=== PATIENT | female | born 1965 | race Caucasian/White ===

== ENCOUNTER 2025-03-06 10:19 | Outpatient (OUT) | payer OTHER, SELFPAY ==
--- OUTSIDE RECORDS SUMMARY | 2025-03-03 06:57 | XMS_ITS | Continuity of Care Document ---
Author Organization [facility] Address [address] [place] [address] Phone Care Team Providers Care Crane Rigger Name Role Phone Mario Roper MD Primary Care Provider [phone] Mario Roper MD Attending Provider [phone] Care Teams Patient Care Team Team Status: Active Member Role/Relationship Status Dates Mario Roper MD Primary Care Provider Active Patient Care Team Team Status: Inactive Member Role/Relationship Status Dates Mario Roper MD Primary Care Provider Active S tart: March 03, 2025 End: March 03, 2025[facility] GERSON Roperttending ProviderActiveStart: March 03, 2025 End: March 03, 2025 Chief Complaint and Reason for Visit Chief Complaint Admit Date RIGHT KNEE PAIN March 03, 2025 11:28am Reason for Visit Admit Date Annual physical exam March 03, 2025 11:28am Chronic pain of right knee February 11:28am Allergies, Adverse Reactions, Alerts Allergen Type Severity Reaction Last Updated Verified Status No Known Allergies Allergy Unknown March 03, 2025 11:37amYesActive Social History Smoking Status Status Start Date End Date Date of Observa tion Smokes tobacco daily (finding) March 03, 2025 11:38am Observation Status Observation Response Date of Response Legal Sex Female (finding) Sex Assigned At BirthFemaleJanuary 18th, 1966 Family History Relationship Condition Age at Onset Recorded Date/T heidy father Malignant neoplasm Unknown motherMalignant neoplasmUnknownbrotherCoronary artery diseaseUnknown Problems Active Problems Problem Diagnosis/Recorded Date Onset Date Stat us Acquired hallux rigidus March 02, 2025 2:40pm Unk nown Active Chronic pain of right knee March 03, 2025 11:48am Unknown Active Hallux valgus of left foot March 02, 2025 2:40pm Unknown Active Annual physical exam March 03, 2025 11:44am Unkno wn Active Acquired hammer toe March 02, 2025 2:40pm Unknown Active Medications Medication Status Dose Units Route Directions Qty Days Refills S tart Date Stop Date End Date Reason(s) Instructions Adherence Acetaminophen (Tylenol Extra Strength) 500 mg Tablet Active 500 MG PO Four times daily as needed for tooth pain November 02, 2019 11:00pmComplies with drug therapyNaproxen Sodium (Aleve) 220 mg ImenniMrmpsnmzspoh190VFTMCpsnc daily as needed for PainJuly 2019 11:00pm March 02, 2025 2:49pmLoratadine-Pseudoephedrine (Claritin-D 12 Hour) 5-120 mg Tablet Extended Release 12 DwTwewmrcdupkk7PZORKPpqleXbys 2019 11:00pm March 02, 2025 2:49pmEsomeprazole Magnesium (Nexium) 20 mg Capsule,Delayed Release(Dr/Ec)Xtwivufmzycg99XZXFX91LIlgp 2019 11:00pmNov2024 2:48pmTramadol 50 mg VnsrhzZewxtawskawr71IJYWC6B as needed for Cnwp0531Ntfs 2019 11:00pmNov2024 2:49pmPostoperative pain Other acute postprocedural painMultivitamin (Daily Multi-Vitamin) tabletActive1 TABPODailyMarch 02, 2025 12:00amComplies with drug therapyOmega-3 Fatty Acids 1,000 mg ozjocwjHntgdu1743XCTXOxvyeEpjcteri 17th, 2025 12:00amComplies with drug therapyNaproxen 250 mg ebhaaeCoylxu431YDBCXzttw daily as needed March 02, 2025 12:00amComplies with drug therapy Medical Equipment Device Date Implanted Device Details Stress urinary incontinence surgical mesh, female November 10, 2019 NIC: [id number] Issuing Agency: [employer] Device Id: [id number] Expiration Date: 2020-06-13 Lot Number: [id number] Vital Signs Vital Reading Result Reference Range Collection Date/Time Height 62 [in_i] March 03, 2025 11:36amBody Hiyhyoqgfuc95.1 [degF]97.6-99.0March 03, 2025 11:36amHeart Rate58 /fvb93-774ZloyafgrMarch 03, 2025 11:36amRespiratory rate22 /lpa33-13RywryzlnMarch 03, 2025 11:36amOxygen saturation by Pulse % 95-100March 03, 2025 11:36amBP Txcamney675 mm[Hg]100-140March 03, 2025 11:36amBP Bynmwmidu61 mm[Hg]60-100March 03, 2025 11:36am Advance Directives Advance Directive Response Recorded Date/ Time Advance Directives No March 24, 2017 9:53am Insurance Providers Guarantor Lisa Goode Address [address] [place] [address]Ahxscuw Info.Home Phone: Payer Group Member ID Coverage Type Subscriber Relationship to Subscriber Effective Date Expiration Date Industrial Self Ins Misc [address] [facility] [address] Work Phone: FX Aligned [id number] J Spradlin Id: [id number] [address] [place] [address] Home Phone: Email: [email or web address] [facility] Ind Id: [id number] J Spradlin Id: [id number] [place] [address] Home Phone: Email: [email or web address] Id: [id number] J [facility] Id: [id number] [address] [place] [address] Home Phone: Email: [email or web address] Encounter Location(s) Arrival/Admit Date Discharge/Departure Date Discharge/Departure Disposition Provider(s) Departed Physician/ Provider Office Visit -[facility] Family Medicine Lazaro March 03, 2025 11:28am March 03, 2025 11:56am Discharged to home care or self care (routine discharge) Mario Roper MD Recent Diagnosis Onset Date Admit Date Annual physical exam Unknown March 032024 11:28am Chronic pain of right knee Unknown Novem 2024 11:28am Assessments Diagnosis Onset Date Resolution Status Admit Date Annual physical exam acuteMarch 03, 2025 11:28amChronic pain of right kneeacuteMarch 03, 2025 11:28am Plan of Treatment Future Tests Future scheduled test information is unavailable Pending Tests Test Name Ordered Date Scheduled Date Comprehensive Metabolic Panel March 03 11:45am XR knee RT 4V*March 03, 2025 11:47amMM screening mammo BI w/CADMarch 03, 2025 11:45am Future Visits Future appointment information is unavailable Future Procedures Procedure Name Ordered Date Scheduled Date A1C with Estimated Average Glu March 03 11:45am Complete Blood Count Auto DiffNovember 2024 11:45amLipid PanelNov2024 11:45amThyroid Stimulating HormoneNov2024 11:45am Future Medications Future medication information is unavailable Patient Instructions Patient instructions are unavailable
--- OUTSIDE RECORDS SUMMARY | 2025-03-06 10:29 | XMS_ITS | Clinical Summary ---
Author Organization [facility] Address [address] [place] [address] Care Team Providers Care Pigment Pusher Name Role Phone Unallocated, [facility] Provider Primary Care Provi samreen Allergies No known active allergies Medications MedicationSigDispense QuantityRefillsLast FilledStart DateEnd DateStatus acetaminophen (Tylenol) 325 MG tablet Take 325 mg by mouth every 8 (eight) hours if needed for mild painActive naproxen (Naprosyn) 250 MG tablet Take 250 mg by mouth 2 (two) times a day as needed for mild painActive Multiple Vitamin (multivitamin) tablet Take 1 tablet by mouth DailyActive omega-3 acid ethyl esters (Lovaza) 1 g capsule Take 1 g by mouth DailyActive Active Problems ProblemNoted DateDiagnosed DateAcquired hallux jaovqsz0410/11/2023cquired hammer toe10/11/2023Hallux valgus of left foot10/11/2023 Family History Medical HistoryRelationNameCommentsLung cancerFatherStrokeMaternal Grandfather CancerMaternal GrandmotherCancerMotherCancerPaternal GrandfatherRelationName StatusCommentsFatherMaternal GrandfatherMaternal GrandmotherMotherPaternal Grandfather Social History Tobacco UseTypesPacks/DayYears UsedDateSmoking Tobacco: Every DayCigarettes Smokeless Tobacco: NeverAlcohol UseStandard Drinks/WeekCommentsYes1 (1 standard drink = 0.6 oz pure alcohol)CommentsUnknownSex and Gender Information ValueDate RecordedSex Assigned at BirthNot on fileLegal OpyRacypj79/15/2023 7:07 PM EDTGender IdentityNot on fileSexual OrientationNot on file Last Filed Vital Signs Vital SignReadingTime TakenCommentsBlood Mvqzukvr578/8810/11/2023 9:59 AM EDT Dzpkj2064/27/2024 9:59 AM YXAGarkbyxcmga11.8 ??C (98.3 ??F)10/11/2023 9:59 AM EDTRespiratory Rate--Oxygen Saturation--Inhaled Oxygen Concentration--Lnxdxm80.4 kg (197 lb)10/10/2021 12:00 PM TTDPzsetn517.4 cm (5' 1.2 )10/10/2021 12:00 PM EDTBody Mass Index36.98010/10/2021 12:00 PM EDT Plan of Treatment Health MaintenanceDue DateLast DoneCommentsCT Zqbjkeggukth92/18/1964Colonoscopy 1965Colorectal Cancer Tswtxylxq69/18/1964FIT-DNA1963FIT1965 FOBT1965 4958Onuizntrlajev61/18/1964Pneumococcal Vaccine: Pediatrics (0 to 5 Years) and At-Risk Patients (6 to 64 Years) (1 of 2 - PCV)1982Pap Smear 05/03/19848176Agvjhqopj77, 04/28/2021, 04/27/2020, Additional history existsCOVID-19 Vaccine ( - season)/Influenza Vaccine (#1)/Cervical Cancer Fvmzonvtf74/27/2027HPV/Cotest 7010/10/2021, 10/05/2020, 09/30/2019, Additional history exists Procedures Procedure NamePriorityDate/TimeAssociated DiagnosisCommentsBI MAMMOGRAM SCREENING GPGZBILNHSkvinxd23/16/2023 Encounter for screening for malignant neoplasm of cervix Encounter for screening mammogram for malignant neoplasm of breast Immunization not carried out because of patient refusal Encounter for gynecological examination (general) (routine) without abnormal findings THINPREP TIS PAP REFLEX HPV MRNA E6/E7 (53946)Jmicypu6710/10/2021 from Last 3 Months or Most Recently Relevant to Health Maintenance Results * Bilateral screening mammogram (05/01/2022)Anatomical RegionLateralityModality BreastBilateralMammographySpecimen (Source)Anatomical Location / Laterality Collection Method / VolumeCollection TimeReceived Time Impressions 05/01/2022 12:00 AM EST No mammographic evidence of malignancy. Routine follow-up recommended in one year. RESULT CODE: 1 ?? Negative DENSITY CODE: 1 (<25% glandular) FOLLOW UP: 1YR THE FALSE-NEGATIVE RATE OF MAMMOGRAPHY IS APPROXIMATELY 10%. IMAGING OF A PALPABLE ABNORMALITY MUST BE BASED ON CLINICAL GROUNDS. PATIENT WAS ENTERED INTO A REMINDER SYSTEM WITH A TARGET DUE DATE FOR THE NEXT MAMMOGRAM. Impression dictated by: Abhay Vega M.D.05/01/2022 10:31 AM Dictation Location: [facility] Transcribed By: ? PWS ?05/01/22 1031 Dictated By: ?Abhay Vega DO ?05/01/22 1030 Signed By: <Electronically signed by Abhay Vega, DO in OV> ? 05/01/22 1031 Narrative 05/01/2022 12:00 AM EST PERFORMED AT [facility] LOCATION:[place] [address] ?[facility] ?[facility] [place] ?[address] ? [place] [address] ? Mammography Report ? Signed Patient: Barbi Goodezabeth Farhan ?MR#: [id number] : 1965 ?Acct:[id number] Age/Sex: 56 / F ?ADM Date: 05/01/22 Loc: [place] ?Room: ?Type: REG CLI Attending Dr: Josemanuel Acosta DO Copies to: DO Josemanuel Hirsch DO Ordering Provider: Josemanuel Acosta DO Date of Service: 05/01/22 MM/MM screening mammo BI w/CAD: screening;Encounter for screening mammogram for malignant ne Bilateral Screening Full Field digital mammogram with 3-D imaging. Full field digital CC and MLO imaging performed. ??CAD utilized. COMPARISON: 04/28/2021 HISTORY:Screening FINDINGS: The breast is almost entirely fatty. ??No developing architectural distortion, developing focal breast asymmetry or developing malignant calcifications identified. MM/MM screening mammo BI w/CAD Procedure Note CONVERSION, GENERIC - 10/20/2022 PERFORMED AT [facility] LOCATION:[address] [place] [address] [place] [address] Mammography Report Signed Patient: Lisa Goode JMR#: [id number] : 1965Acct:[id number] Age/Sex: 56 / FADM Date: 05/01/22 Loc: [place] Room:Type: [facility] Attending Dr: Josemanuel Acosta DO Copies to: DO Josemanuel Hirsch DO Ordering Provider: Josemanuel Acosta DO Date of Service: 05/01/22 MM/MM screening mammo BI w/CAD:screening;Encounter for screening mammogram for malignant ne Bilateral Screening Full Field digital mammogram with 3-D imaging. Full field digital CC and MLO imaging performed. CAD utilized. COMPARISON: 04/28/2021 HISTORY:Screening FINDINGS: The breast is almost entirely fatty. No developingarchitectural distortion, developing focal breast asymmetry or developing malignant calcificationsidentified. MM/MM screening mammo BI w/CAD IMPRESSION: No mammographic evidence of malignancy. Routine follow-up recommended inone year. RESULT CODE: 1 Negative DENSITY CODE: 1 (<25% glandular) FOLLOW UP: 1YR THE FALSE-NEGATIVE RATE OF MAMMOGRAPHY IS APPROXIMATELY 10%. IMAGING OF A PALPABLE ABNORMALITY MUST BE BASED ON CLINICAL GROUNDS. PATIENT WAS ENTERED INTO A REMINDER SYSTEM WITH A TARGET DUE DATE FOR THENEXT MAMMOGRAM. Impression dictated by: Abhay Vega M.D.05/01/2022 10:31 AM Dictation Location: [facility] Transcribed By: ESSIE 05/01/22 1031 Dictated By: Abhay Vega DO 05/01/22 1030 Signed By: <Electronically signed by Abhay Vega DO in OV> 05/01/22 1031 Authorizing ProviderResult TypeResult StatusJosemanuel Acosta DOIMG BI PROCEDURES Final Result * THINPREP TIS PAP REFLEX HPV MRNA E6/E7 (02033) (10/10/2021)ComponentValueRef RangeTest MethodAnalysis TimePerformed AtPathologist SignatureCLINICAL INFORMATION:None givenNOMS LEGACY EXTERNAL LABLMP:2,017[facility] LEGACY EXTERNAL LABPREV. PAP:NEGATIVENOMS LEGACY EXTERNAL LABPREV. BX:HC CIN3 1992[facility]TER[facility] LABSOURCE:EndocervixNOMS LEGACY EXTERNAL LABSTATEMENT OF ADEQUACY:SEE COMMENTNOMS LEGACY EXTERNAL LABComment: Satisfactory for evaluation. Endocervical/transformation zone component present. INTERPRETATION/RESULT:Negative for intraepithelial lesion or malignancy.[facility] EXTER[facility] LABCOMMENT:This Pap test has been evaluated with computer assisted technology.[facility] LABCYTOTECHNOLOGIST:SEE COMMENTNOMS LEGACY EXTERNAL LABComment: GOIVANNA CARDONA(ASCP) CT screening location: [place] [address]. COMMENTSEE COMMENTNOMS LEGACY EXTERNAL LABComment: EXPLANATORY NOTE: The Pap is a screening test for cervical cancer. It is not a diagnostic test and is subject to false negative and false positive results. It is most reliable when a satisfactory sample, regularly obtained, is submitted with relevant clinical findings and history, and when the Pap result is evaluated along with historic and current clinical information. Specimen (Source)Anatomical Location / LateralityCollection Method / Volume Collection TimeReceived Time10/10/2021 Narrative Authorizing ProviderResult TypeResult Ale Acosta DOECW LABSFinal ResultPerforming OrganizationAddressCity/State/ZIP CodePhone Number [facility] from Last 3 Months or Most Recently Relevant to Health Maintenance Insurance Care Teams Team MemberRelationshipSpecialtyStart DateEnd Date Unallocated, Noms [place], [address] [place] [address] PCP - GeneralFamily Medicine10/11/23
--- OUTSIDE RECORDS SUMMARY | 2025-03-06 10:29 | XMS_ITS | Clinical Summary ---
Author Organization [facility] Address [id number] [address] [id number] Care Team Providers Care Electric Range Preparer Name Role Phone Unavailable Primary Care Provider Unavailabl e Social History Tobacco UseTypesPacks/DayYears UsedDateSmoking Tobacco: Never AssessedChildcare AnswerDate KfrkowhjDuzipwwomJkdzzkq82/12/2019EmploymentAnswerDate Recorded QmbuizqvmjOebeebj86/12/2019CommentsUnknownSex and Gender Information ValueDate RecordedSex Assigned at BirthNot on fileLegal TwmDolawe05/06/2015 11:53 AM EDTGender IdentityNot on fileSexual OrientationNot on file Plan of Treatment Not on file Medical Devices Not on file
--- NOTE | 2025-03-06 10:45 | XR_ITS ---
The [address] [address] Patient Name: ROB TAYLOR MRN: [id number] date: 1965 Sex: F Assigned Patient Location: LAB Current Patient Location: LAB Accession/Order Number: [id number] Exam Date: 03/06/2025 10:48 Report Date: 03/06/2025 11:26 At the request of: MARCE GENAO MD Procedure: XR knee RT 4V RIGHT KNEE - 4 views COMPARISON: 06/23/2022 CLINICAL DATA: Chronic right knee pain for months. No injury. AP, lateral and both oblique views were obtained. There is osteopenia. No acute fracture or dislocation is noted. No disproportionate joint space narrowing is seen. There is mild tricompartment marginal spurring. There is no significant knee effusion or soft tissue swelling. XR/XR knee RT 4V IMPRESSION: MILD DEGENERATIVE CHANGE. NO ACUTE BONY FINDINGS. Impression dictated by: Sosa Peterson M.D. 03/06/2025 11:26 AM Dictation Location: [place] [address] Electronically authenticated by: [id number] Y Date: 03/06/2025 11:26
[2025-03-06 11:19] LABS: Alanine Aminotransferase 20 U/L (14-59); Albumin Globulin Ratio 0.9; Albumin Level 3.6 g/dL (3.4-5.0); Alkaline Phosphatase 79 U/L (46-116); Anion Gap 11.0; Aspartate Amino Transferase 19 U/L (15-37); Blood Urea Nitrogen 13.0 mg/dL (7.0-18.0); Calcium 8.9 mg/dL (8.5-10.1); Carbon Dioxide 31.3 mmol/L (21.0-32.0); Chloride 102 mmol/L (98-107); Cholesterol 364 mg/dL (<=200); Estimated GFR (African America >60 (>=60 mL/min/1.73m^2); Estimated GFR (Non-African Ame >60 (>=60 mL/min/1.73m^2); Globulin 3.8 g/dL; Glucose 98 mg/dL (74-106); HDL Cholesterol 37 mg/dL (40-60); Potassium 4.3 mmol/L (3.5-5.1); Sodium 140 mmol/L (136-145); Thyroid Stimulating Hormone 1.940 uIU/mL (0.358-3.740); Total Protein 7.4 g/dL (6.4-8.2); Triglycerides 185 mg/dL (<=150); VLDL CHOLESTEROL 37.0 mg/dL
[2025-03-06 13:06] LABS: Hematocrit 46.7 % (36.0-48.0); Hemoglobin 15.0 g/dL (12.0-16.0); Immature Granulocytes Abs Auto 0.03 10^3/uL (0.00-0.03); Immature Granulocytes Pct Auto 0.3 % (0.0-0.5); Lymphocytes Absolute Auto 3.3 10^3/uL (1.2-3.8); Mean Corpuscular HGB Conc 32.1 g/dL (29.9-35.2); Mean Corpuscular Hemoglobin 29.9 pg (26.7-34.0); Mean Corpuscular Volume 93.2 fL (81.0-99.0); Platelet Count 337 10^3/uL (150-450); Red Blood Count 5.01 10^6/uL (4.20-5.40); White Blood Count 8.6 10^3/uL (4.0-11.0)
== END 2025-03-06 10:20 | disposition home or self-care (01) ==
PROVIDERS: PCP Family Medicine; Visit Provider Family Medicine
DX: Z00.00 Encounter for general adult medical examination without abnormal findings (principal); M25.561 Pain in right knee; G89.29 Other chronic pain
CPT/HCPCS: 36415; 73564; 80053; 80061; 83036; 84443; 85025

== ENCOUNTER 2025-03-23 11:33 | Outpatient (OUT) | payer OTHER, SELFPAY ==
--- NOTE | 2025-03-23 11:46 | MM_ITS ---
Patient Name: ROB TAYLOR MR#: [id number] : 1965 Exam Date: 03/23/2025 Ordering Doctor: DR MARCE GENAO . RADIOLOGY REPORT PROCEDURE: MM TOMOSYNTHESIS SCREENING BI COMPARISON: MAMMO MARIAM SCREEN, 05/01/2022. MAMMO SCREEN DIG MARIAM, 12/28/2010. MAMMO SCREEN DIG MARIAM, 01/13/2010. MAMMO SCREEN DIG MARIAM, 08/19/2008. INDICATIONS: Screening Calculator Name NCI Breast Cancer Risk Assessment Tool 5 Year Breast Cancer Risk Not Reported. Lifetime Breast Cancer Risk Not Reported. Personal Breast Cancer No Personal Ovarian Cancer No Treatments None Family Cancers None LOCATION: [facility] BREAST COMPOSITION: There are scattered areas of fibroglandular density. FINDINGS: RIGHT BREAST: No significant suspicious finding. LEFT BREAST: There is a 6 mm focal asymmetry in the medial aspect of the left breast 5.5 cm from the nipple at approximately the 8 to 9 o'clock position. DIAGNOSTIC CATEGORY 0--INCOMPLETE: NEED ADDITIONAL IMAGING EVALUATION. RECOMMENDATIONS: ADDITIONAL MAMMOGRAPHIC VIEWS REQUIRED: LEFT BREAST - follow-up with spot compressed views of the left breast and ultrasound if necessary is recommended. Dictated by: Brain Paz MD on 03/23/2025 at 16:03 Approved by: Brain Paz MD on 03/23/2025 at 16:11
== END 2025-03-23 11:34 | disposition home or self-care (01) ==
LOC: MAMMO 11:35
PROVIDERS: PCP Family Medicine; Visit Provider Family Medicine
DX: Z00.00 Encounter for general adult medical examination without abnormal findings (principal); Z12.31 Encounter for screening mammogram for malignant neoplasm of breast; R92.8 Other abnormal and inconclusive findings on diagnostic imaging of breast
CPT/HCPCS: 77063; 77067

== ENCOUNTER 2025-04-14 09:20 | Outpatient (OUT) | payer OTHER, SELFPAY ==
--- NOTE | 2025-04-14 | US_ITS ---
Patient Name: ROB TAYLOR MR#: [id number] : 1965 Exam Date: 04/14/2025 Ordering Doctor: DR MARCE GENAO . RADIOLOGY REPORT PROCEDURE: MM TOMOSYNTHESIS DIAGNOSTIC LT, 04/14/2025, 09:31 US BREAST LT LIMITED, 04/14/2025, 10:22 COMPARISON: MM TOMOSYNTHESIS SCREENING BI, 03/23/2025. MAMMO MARIAM SCREEN, 05/01/2022. MAMMO SCREEN DIG MARIAM, 12/28/2010. MAMMO SCREEN DIG MARIAM, 01/13/2010. INDICATIONS: Abnormal Mammogram Calculator Name NCI Breast Cancer Risk Assessment Tool 5 Year Breast Cancer Risk Not Reported. Lifetime Breast Cancer Risk Not Reported. Personal Breast Cancer No Personal Ovarian Cancer No Treatments None Family Cancers None LOCATION: [facility] BREAST COMPOSITION: There are scattered areas of fibroglandular density. FINDINGS: Spot compression imaging with a mediolateral view obtained. A doctor density persists with compression imaging. A targeted left breast ultrasound. There is identification of a 4 x 3 x 3 mm anechoic area at the 9 o'clock position 5 cm from the nipple. likely benign. concordant with mammogram. Also adjacent to this area is a tubular structure which is anechoic measuring 8 x 3 x 5 mm likely represents mildly prominent duct. DIAGNOSTIC CATEGORY 3--PROBABLY BENIGN FINDING. THE FOLLOWING FINDING(S) HAS A HIGH PROBABILITY OF A BENIGN ETIOLOGY: RECOMMENDATIONS: SHORT TERM FOLLOW-UP ULTRASOUND LEFT BREAST IN 6 MONTHS. Dictated by: Abhay Vega DO on 04/14/2025 at 10:53 Approved by: Abhay Vega DO on 04/14/2025 at 11:07
--- OUTSIDE RECORDS SUMMARY | 2025-04-14 09:23 | XMS_ITS | Clinical Summary ---
Author Organization [facility] Address [id number] [address] [id number] Care Team Providers Care Strawhat Sizer Name Role Phone Unavailable Primary Care Provider Unavailabl e Social History Tobacco UseTypesPacks/DayYears UsedDateSmoking Tobacco: Never AssessedChildcare AnswerDate VpjbybbePgacxzzyzLcamzbi03/12/2019EmploymentAnswerDate Recorded BtcbihqgaxSqjjnkt61/12/2019CommentsUnknownSex and Gender Information ValueDate RecordedSex Assigned at BirthNot on fileLegal ZltErobwr98/06/2015 11:53 AM EDTGender IdentityNot on fileSexual OrientationNot on file Plan of Treatment Not on file Medical Devices Not on file
--- OUTSIDE RECORDS SUMMARY | 2025-04-14 09:23 | XMS_ITS | Clinical Summary ---
Author Organization [facility] Address [address] [place] [address] Care Team Providers Care Oss Architect Name Role Phone Unallocated, [facility] Provider Primary [...] DailyActive Active Problems ProblemNoted DateDiagnosed DateAcquired hallux vbtuqsu2910/11/2023cquired hammer toe10/11/2023Hallux valgus of left foot10/11/2023 Family History Medical HistoryRelationNameCommentsLung cancerFatherStrokeMaternal Grandfather CancerMaternal GrandmotherCancerMotherCancerPaternal GrandfatherRelationName StatusCommentsFatherMaternal GrandfatherMaternal GrandmotherMotherPaternal Grandfather Social History Tobacco UseTypesPacks/DayYears UsedDateSmoking Tobacco: Every DayCigarettes Smokeless Tobacco: NeverAlcohol UseStandard Drinks/WeekCommentsYes1 (1 standard drink = 0.6 oz pure alcohol)CommentsUnknownSex and Gender Information ValueDate RecordedSex Assigned at BirthNot on fileLegal PteMugvuf37/15/2023 7:07 PM EDTGender IdentityNot on fileSexual OrientationNot on file Last Filed Vital Signs Vital SignReadingTime TakenCommentsBlood Ottsfqfb443/8810/11/2023 9:59 AM EDT Wxero3036/27/2024 9:59 AM PABRpmrxbhycrn69.8 ??C (98.3 ??F)10/11/2023 9:59 AM EDTRespiratory Rate--Oxygen Saturation--Inhaled Oxygen Concentration--Cuymoo97.4 kg (197 lb)10/10/2021 12:00 PM VHGXvxvxx295.4 cm (5' 1.2 )10/10/2021 12:00 PM EDTBody Mass Index36.98010/10/2021 12:00 PM EDT Plan of Treatment Health MaintenanceDue DateLast DoneCommentsCT Iaqgkfidmrdm28/18/1964Colonoscopy 1965Colorectal Cancer Xouwpfouo49/18/1964FIT-DNA1963FIT1965 FOBT1965 7536Ugxtygcyizbds85/18/1964Pneumococcal Vaccine: Pediatrics (0 to 5 Years) and At-Risk Patients (6 to 64 Years) (1 of 2 - PCV)1982Pap Smear 05/03/19840637Hrihbfykm15, 04/28/2021, 04/27/2020, Additional history existsInfluenza Vaccine (#1)/Cervical Cancer Unebtsrtl42/27/2027HPV/Ccpxke99, 10/05/2020, 09/30/2019, Additional history exists Procedures Procedure NamePriorityDate/TimeAssociated DiagnosisCommentsBI MAMMOGRAM SCREENING SFWFXMFNEIfpyrnh52/16/2023 Encounter for screening for malignant neoplasm of cervix Encounter for screening mammogram for malignant neoplasm of breast Immunization not carried out because of patient refusal Encounter for gynecological examination (general) (routine) without abnormal findings THINPREP TIS PAP REFLEX HPV MRNA E6/E7 (53752)Dcuwxaf1110/10/2021 from Last 3 Months or Most Recently [...] Abhay Vega M.D.05/01/2022 10:31 AM Dictation Location: [facility] Transcribed By: ? PWS ?05/01/22 1031 Dictated By: ?Abhay Vega DO ?05/01/22 1030 Signed By: <Electronically signed by Abhay Vega, DO in [place]> ? 05/01/22 1031 Narrative 05/01/2022 12:00 AM EST PERFORMED AT [facility] LOCATION:[address] ?[facility] [place] ?[address] ? [place] [address] ? Mammography Report ? Signed Patient: Lisa Goode ?MR#: [id number] : 1965 ?Acct:[id number] Age/Sex: 56 / F ?ADM Date: 05/01/22 [...] Note CONVERSION, GENERIC - 10/20/2022 PERFORMED AT [facility] LOCATION:[address] [place] [address] [place] [address] Mammography Report Signed Patient: Lisa Goode JMR#: [id number] : 1965Acct:[id number] Age/Sex: 56 / FADM Date: 05/01/22 Loc: MS Room:Type: [facility] Attending Dr: Josemanuel Acosta DO Copies to: [...] Abhay Vega M.D.05/01/2022 10:31 AM Dictation Location: [facility] Transcribed By: [facility] 05/01/22 1031 Dictated By: Abhay Vega DO 05/01/22 1030 Signed By: <Electronically signed by Abhay Vega DO in OV> 05/01/22 1031 Authorizing ProviderResult TypeResult StatusWillvidhi Acosta DOIMG BI PROCEDURES Final Result * THINPREP TIS PAP REFLEX HPV MRNA E6/E7 (64651) (10/10/2021)ComponentValueRef RangeTest MethodAnalysis TimePerformed AtPathologist SignatureCLINICAL INFORMATION:None [...] LEGACY EXTERNAL LABCYTOTECHNOLOGIST:SEE COMMENTNOMS LEGACY EXTERNAL LABComment: GIOVANNA CARDONA(ASCP) CT screening location: [facility], [address] [place] [address]. COMMENTSEE COMMENTNOMS LEGACY EXTERNAL LABComment: EXPLANATORY NOTE: [...] Collection TimeReceived Time10/10/2021 Narrative Authorizing ProviderResult TypeResult StatusWillvidhi LAMB LABSFinal ResultPerforming OrganizationAddressCity/State/ZIP CodePhone Number [facility] from Last 3 Months or Most Recently Relevant [place] [id number] Care Teams Team MemberRelationshipSpecialtyStart DateEnd Date Unallocated, [facility] Provider, [address] [place] [address] PCP - GeneralFamily Medicine10/11/23
--- NOTE | 2025-04-14 09:28 | MM_ITS ---
Patient Name: ROB TAYLOR MR#: [id number] : 1965 Exam Date: 04/14/2025 Ordering Doctor: DR MARCE GENAO . RADIOLOGY REPORT PROCEDURE: MM TOMOSYNTHESIS DIAGNOSTIC LT, 04/14/2025, 09:31 US BREAST LT LIMITED, 04/14/2025, 10:22 COMPARISON: MM TOMOSYNTHESIS SCREENING BI, 03/23/2025. MAMMO MARIAM SCREEN, 05/01/2022. MAMMO SCREEN DIG MARIAM, 12/28/2010. MAMMO SCREEN DIG MARIAM, 01/13/2010. INDICATIONS: Abnormal Mammogram Calculator Name NCI Breast Cancer Risk Assessment Tool 5 Year Breast Cancer Risk Not Reported. Lifetime Breast Cancer Risk Not Reported. Personal Breast Cancer No Personal Ovarian Cancer No Treatments None Family Cancers None LOCATION: [facility] BREAST COMPOSITION: There are scattered areas of fibroglandular density. FINDINGS: Spot compression imaging with a mediolateral view obtained. A doctor density persists with compression imaging. A targeted left breast ultrasound. There is identification of a 4 x 3 x 3 mm anechoic area at the 9 o'clock position 5 cm from the nipple. likely benign. concordant with mammogram. Also adjacent to this area is a tubular structure which is anechoic measuring 8 x 3 x 5 mm likely represents mildly prominent duct. DIAGNOSTIC CATEGORY 3--PROBABLY BENIGN FINDING. THE FOLLOWING FINDING(S) HAS A HIGH PROBABILITY OF A BENIGN ETIOLOGY: RECOMMENDATIONS: SHORT TERM FOLLOW-UP ULTRASOUND LEFT BREAST IN 6 MONTHS. Dictated by: Abhay Vega DO on 04/14/2025 at 10:53 Approved by: Abhay Vega DO on 04/14/2025 at 11:07
== END 2025-04-14 09:21 | disposition home or self-care (01) ==
PROVIDERS: PCP Family Medicine; Visit Provider Family Medicine
DX: R92.8 Other abnormal and inconclusive findings on diagnostic imaging of breast (principal)
CPT/HCPCS: 76642; 77065; G0279